=== PATIENT | female | born 1955 | race Caucasian/White ===

== ENCOUNTER → 2016-02-14 | Outpatient (REF) | payer OTHER | LOC: M LAB REF 12:26 | PROVIDERS: ATTEND Internal Medicine | DX: Z00.01 Encounter for general adult medical examination with abnormal findings (principal) ==

== ENCOUNTER → 2016-09-08 | Outpatient (REF) | payer OTHER ==
[2016-09-08 14:07] LABS: BLOOD UREA NITROGEN 17 MG/DL (7-18); CREATININE FOR GFR 0.61 MG/DL (0.55-1.02); GLOMERULAR FILTRATION RATE > 60.0 (>51)
== END ==
LOC: M LABDRAW1 13:18
PROVIDERS: ATTEND Orthopaedic Surgery
DX: M71.22 Synovial cyst of popliteal space [Baker], left knee (principal)

== ENCOUNTER → 2017-08-24 | Outpatient (REF) | payer OTHER ==
[2017-08-26 00:20] LABS: Lyme Disease IgG/IgM Antibodie <0.91 ISR (0.00-0.90); Lyme Disease IgM Ab Quantitati <0.80 index (0.00-0.79)
== END ==
LOC: M LAB REF 13:34
DX: Z11.59 Encounter for screening for other viral diseases (principal)

== ENCOUNTER → 2017-11-22 | Outpatient (REF) | payer OTHER ==
[2017-11-22 16:03] LABS: C REACTIVE PROTEIN QUANTITATIV < 0.30 MG/DL (0.00-0.30); RHEUMATOID FACTOR QUANT < 10.0 IU/ML (<15.0)
[2017-11-22 16:03] LABS: URIC ACID 5.4 MG/DL (2.6-6.0)
[2017-11-22 16:44] LABS: BASO % 0.2 % (0.0-1.0); EOS # 0.1 10^3/uL (0.0-0.50); HEMATOCRIT 38.8 % (36.0-47.0); HEMOGLOBIN 13.2 g/dl (12.0-15.5); IMMATURE GRANULOCYTE % 0.2 % (0-3.0); LYMPH # 1.7 10^3/uL (1.5-4.5); LYMPH % 31.7 % (24.0-44.0); MEAN CORPUSCULAR HEMOGLOBIN 30.8 pg (27.0-33.0); MEAN CORPUSCULAR VOLUME 90.4 fl (80.0-96.0); MONO # 0.4 10^3/uL (0.0-0.8); MONO % 8.3 % (0.0-5.0); NEUTROPHILS # 3.1 10^3/uL (1.8-7.7); NEUTROPHILS % 58.6 % (36.0-66.0); PLATELET COUNT, AUTOMATED 254 10^3/uL (150-450); RED BLOOD COUNT 4.29 10^6/uL (4.00-5.40); RED CELL DISTRIBUTION WIDTH 12.6 % (11.5-14.5); WHITE BLOOD COUNT 5.2 10^3/uL (4.0-10.0)
[2017-11-22 17:32] LABS: ERYTHROCYTE SEDIMENTATION RATE 21 mm/hr (0-30)
[2017-11-22 18:20] LABS: BF MONONUCLEAR CELL % 78.2 % (0-0); BF POLYMORPHONUCLEAR CELL % 21.8 % (0-0); RBC BODY FLUID 2 10^3/uL (<2); WBC BODY FLUID 527 /uL (0-10)
[2017-11-22 18:23] LABS: APPEARANCE, BODY FLUID CLEAR (CLEAR); SYNOVIAL FLUID COLOR YELLOW (YELLOW)
[2017-11-22 18:24] LABS: BF DIFF IF INDICATED? YES (NO)
[2017-11-22 19:19] LABS: URIC ACID, BODY FLUID 5.2 MG/DL (NOT ESTABLISHED)
[2017-11-22 20:01] LABS: CRYSTALS, BODY FLUID NONE SEEN (NONE SEEN)
[2017-11-23 13:52] LABS: BODY FLUID RHEUMATOID SCREEN NEGATIVE (NEGATIVE)
[2017-11-23 13:53] LABS: MUCIN CLOT TEST 4+ (4+)
[2017-11-25 00:08] LABS: ANTINUCLEAR ANTIBODIES DIRECT Negative (Negative); Lyme Disease IgG/IgM Antibodie <0.91 ISR (0.00-0.90); Lyme Disease IgM Ab Quantitati <0.80 index (0.00-0.79)
== END ==
LOC: M LAB REF 15:40
DX: M17.11 Unilateral primary osteoarthritis, right knee (principal)

== ENCOUNTER → 2020-01-16 | Outpatient (CLI) | payer SELFPAY | LOC: M LABSMTC 09:56 | PROVIDERS: ATTEND Pediatrics | DX: Z11.59 Encounter for screening for other viral diseases (principal) ==

== ENCOUNTER → 2022-06-15 | Outpatient (CLI) | payer BC, MEDICARE, OTHER | LOC: M RAD 09:33 | PROVIDERS: ATTEND Physician Assistant | DX: J32.0 Chronic maxillary sinusitis (principal); J34.2 Deviated nasal septum ==

== ENCOUNTER → 2023-03-04 | Outpatient (CLI) | payer MEDICARE, BC, OTHER | LOC: M WUC 11:18 | PROVIDERS: ATTEND Internal Medicine | DX: M25.511 Pain in right shoulder (principal); M25.512 Pain in left shoulder ==

== ENCOUNTER → 2023-07-27 | Outpatient (REF) | payer MEDICARE, BC, OTHER | LOC: M LAB REF 16:00 | PROVIDERS: ATTEND Surgery | DX: D17.22 Benign lipomatous neoplasm of skin and subcutaneous tissue of left arm (principal) ==

== ENCOUNTER → 2023-11-04 | Outpatient (CLI) | payer MEDICARE, BC, OTHER | LOC: M WUC 09:56 | PROVIDERS: ATTEND Internal Medicine | DX: M25.511 Pain in right shoulder (principal); M19.011 Primary osteoarthritis, right shoulder; R53.83 Other fatigue; M25.512 Pain in left shoulder; S00.461A Insect bite (nonvenomous) of right ear, initial encounter; W57.XXXA Bitten or stung by nonvenomous insect and other nonvenomous arthropods, initial encounter; Y92.9 Unspecified place or not applicable; Y93.9 Activity, unspecified; Y99.9 Unspecified external cause status ==

== ENCOUNTER → 2023-11-04 | Outpatient (REF) | payer MEDICARE, OTHER | LOC: M LAB REF 11:42 | PROVIDERS: ATTEND Internal Medicine | DX: R53.83 Other fatigue (principal); M25.512 Pain in left shoulder; S00.461A Insect bite (nonvenomous) of right ear, initial encounter ==

== ENCOUNTER → 2024-06-27 | Outpatient (REF) | payer MEDICARE, OTHER | LOC: M LAB REF 14:09 | PROVIDERS: ATTEND Internal Medicine | DX: S00.461A Insect bite (nonvenomous) of right ear, initial encounter (principal) ==